=== PATIENT | female | born 1955 | race Caucasian/White ===

== ENCOUNTER 2018-07-14 12:06 | Observation (INO) | payer MEDICARE ==
[~2018-07-14] VITALS: Ht 154.9 cm; Wt 103.0 kg
[~2018-07-14 12:06] MED LIST: AMLODIPINE BESY10 MG PO; AMOXICILLIN/PO500 MG PO; ASPIRIN EC81 MG PO; BYSTOLIC5 MG PO; ENALAPRIL10 MG PO; FUROSEMIDE40 MG PO; GLIPIZIDE ER5 MG PO; JANUVIA100 MG PO; KLOR-CON 1010 ME1 PO; LEVEMIR1000 UNITS; LOFIBRA134 MG PO; LOPRESSOR50 M1 PO; LOSARTAN POT100 MG PO; LYRICA50 MG PO; LYRICA75 MG PO; MEDDOSEPAK PO; NAPROSYN500 MG PO; PANTOPRAZOLE SO40 MG PO; PAROXETINE20 MG PO; PRAVASTATIN SOD20 MG PO; PRAVASTATIN SOD40 MG PO; SONATA10 M1 PO
--- NOTE | 2018-07-14 12:19 | NUR ---
PATIENT TO ROOM VIA WHEELCHAIR AND PHYSICIAN NOTIFIED OF PATIENT STATUS
[2018-07-14 12:49] LABS: HEMATOCRIT 46.2 % (37.0-47.0); IMMATURE GRANULOCYTES 0.2 % (0.0-5.0); MEAN CELL VOLUME 87.3 fL CALC (80.0-100.0); MEAN CORPUSCULAR HGB 30.2 pG CALC (26.0-32.0); MEAN CORPUSCULAR HGB CONC 34.6 g/L CALC (32.0-36.0); NEUT# 1.54 thou/uL (2.00-7.15); RED BLOOD COUNT 5.29 mill/uL (4.20-5.60); RED CELL DISTRI WIDTH 12.8 % (11.5-15.5)
[2018-07-14 13:01] LABS: ANION GAP 16 (6-22 (CALC)); BUN 13 mg/dL (8-23); BUN/CREATININE RATIO 22 (12-20 (CALC)); CARBON DIOXIDE 24 mmol/l (22-30); CHLORIDE 105 mmol/l (95-108); CREATININE 0.6 mg/dL (0.5-1.0); GFR > 60 ML/MIN (>=60 (CALC)); GFR FOR AFR.AMER. > 60 ML/MIN (>=60 (CALC)); POTASSIUM 3.7 mmol/l (3.5-5.1); SODIUM 142 mmol/l (137-146)
--- NOTE | 2018-07-14 13:11 | NUR ---
PT RESTING IN NO ACUTE DISTRESS, VSS. IVF BOLUS & ABT INFUSING. TOLERATING NEBULIZER TX WELL.
--- NOTE | 2018-07-14 13:35 | NUR ---
PT MORE ALERT AND CONVERSIVE. CONTINUOUS IVF BOLUS. RESP EVENA ND UNLABORED
[2018-07-14] MEDS ORDERED: NOVOLIN N100 UNIT/1 SC ×2 (14:23→14:24)
[2018-07-14] MEDS ORDERED: ESCITALOPRAM OX10 MG PO (14:27)
[2018-07-14] MEDS ORDERED: TRAZODONE50 MG PO (14:28)
[2018-07-14] MEDS ORDERED: FLONASE SE27.5 MCG/S IN (14:30)
--- NOTE | 2018-07-14 14:40 | NUR ---
PT RESTING SUPINE, VSS. PT MORE ALERT AND TALKATIVE WITH FAMILY.
--- NOTE | 2018-07-14 15:00 | NUR ---
INITATED IV VANCO ORDERED.
--- NOTE | 2018-07-14 15:10 | NUR ---
PT RESTING IN NO ACUTE DISTRESS. VSS.CONTINUES WITH IV ABT INFUSING WELL. NO STATED C/O. NO PAIN OR RESP DISTRESS. NSR 86.
--- NOTE | 2018-07-14 16:20 | NUR ---
PT TRANSPORTED TO [facility] VIA STRETCHER ON TELEMETRY IN STABLE CONDITION, SISTER IN ATTENDANCE. SISTER YVETTE STATES SHE IS TAKING PTS PURSE HOME, PT AGREEABLE.
--- NOTE | 2018-07-14 16:35 | NUR ---
PT ARRIVED TO [facility] VIA STRETCHER ACCOMPANIED BY ER NURSE. PT ALERT AND ORIENTED X3, AMBULATED TO BATHROOM. NO SIGNS OF DISTRESS NOTED, RESP EVEN AND UNLABORED. ORIENTED TO ROOM AND CALL LIGHT. DISCUSSED POC. PT IN AGREEMENT. PT TEARFUL WHEN DISCUSSING SITUATION AT HOME. PT LIVES WITH BUT STATES HE IS GONE MOST OF THE DAY AND DOES NOT HAVE ANY HELP AT HOME. SHE SOMETIMES FORGETS WHEN AND IF SHE HAS TAKEN ANY MEDICATIONS. PT STATED THAT IT WAS HER SISTER WHO BROUGHT HER TO THE ER, AND SHE WAS IN BED HAVING EPISODES THAT THE BED WAS SATURATED IN SWEAT. PLACED LEAD JAVA SOFTWARE ENGINEER CONSULT. DISCUSSED ANTIBIOTICS, ADMISSION ASSESSMENT COMPLETED. CALL LIGHT IN REACH,CONTINUE TO MONITOR.
[2018-07-14 16:50] VITALS: BP 146/70
--- NOTE | 2018-07-14 18:50 | NUR ---
IV ROCEPHIN COMPLETED, IV SL. PT VOICES NO NEEDS OR COMPLAINTS AT THIS TIME. CALL LIGHT IN REACH,CONTINUE TO MONITOR.
[2018-07-14 19:30] VITALS: BP 142/78
--- NOTE | 2018-07-14 19:30 | NUR ---
PATIENT RESTING IN BED AT THIS TIME-AWAKE ALERT AND ORIENTEDX3. PATIENT IS [place]. NO COMPLAINTS AT THIS TIME. TELE MONITOR IN PLACE. IV SITE TO RIGHT AC INTACT AND APPEARS HELATHY AT THIS TIME. SAFETY PRECAUTIONS REINFORCED. CALL LIGHT IN REACH. WILL CONT TO MONITOR.
[2018-07-14 23:30] VITALS: BP 143/69
--- NOTE | 2018-07-15 01:15 | NUR ---
PATIENT RESTING IN BED-APPEARS SLEEPING WITH EYES CLOSED. RESP ARE EVEN AND UNLABORED. TELE MONITOR IN PLACE. CALL LIGHT IN REACH. WILL CONT TO MONITOR.
--- NOTE | 2018-07-15 03:40 | NUR ---
PATIENT APPEARS SLEEPING AT THIS TIME WITH EYES CLOSED. RESP ARE EVEN AND UNLABORED. TELE MONITOR IN PLACE. CALL LIGHT IN REACH.WILL CONT TO MONITOR.
[2018-07-15 05:28] VITALS: BP 141/70
[2018-07-15 07:22] VITALS: BP 145/68
--- NOTE | 2018-07-15 07:28 | NUR ---
PT. SITTING UP IN BED WITH NO DISTRESS NOTED; DENIES NEEDS/PAIN. PT. REPORTS SHE FEELS MUCH BETTER BETTER AND IS HOPING TO GO HOME TODAY. VSS; PO FLUIDS OFFERED; ASSESSMENT COMPLETED; SEE INTERVENTION;PT. REPORTS BM THIS AM; ENCOURAGED TO CALL FOR ANY NEEDS; CALL LIGHT IS IN REACH; WILL CONTINUE TO MONITOR.
--- NOTE | 2018-07-15 09:01 | NUR ---
PT. SITTING UP IN CHAIR AND IS VERY ANXIOUS WHEN UPDATED WITH POC WITH BLOOD THINNER FOR AFIB; PT. REPORTS SHE IS NOT GOING TO TAKE A BLOOD THINNER THAT SHE IS ALREADY ON ASA AND THAT IS ALL SHE WILL TAKE. PT. ALSO REPORTS THAT SHE IS FEELING BETTER AND WANTS TO GO HOME WHETHER MD SENDS HER HOME OR NOT. WILL NOTIFY SARA HOROWITZ, SHE IS ON THE FLOOR CURRENTLY.
--- NOTE | 2018-07-15 09:15 | NUR ---
SARA HOROWITZ IN TO SEE PT.
--- NOTE | 2018-07-15 10:01 | NUR ---
PT. MEDICATED WITH ORDERED XANAX X1 TO ASSIST TO RELAX; PT. DENIES FURTHER NEEDS;
--- NOTE | 2018-07-15 11:07 | NUR ---
NOTIFIED SARA HOROWITZ, OF ELEVATED BS AT 434; NEW ORDERS TO BE PLACED AND CARRIED OUT WHEN MEDICATION ON EMAR.
[2018-07-15 11:10] VITALS: BP 131/63
[2018-07-15 13:32] LABS: IMMATURE GRANULOCYTES 0.5 % (0.0-5.0); MEAN CELL VOLUME 87.9 fL CALC (80.0-100.0); MEAN CORPUSCULAR HGB 30.6 pG CALC (26.0-32.0); MEAN CORPUSCULAR HGB CONC 34.8 g/L CALC (32.0-36.0); NEUT# 6.87 thou/uL (2.00-7.15); RED BLOOD COUNT 4.48 mill/uL (4.20-5.60); RED CELL DISTRI WIDTH 12.8 % (11.5-15.5)
[2018-07-15 13:36] LABS: HEMATOCRIT 39.4 % (37.0-47.0); HEMOGLOBIN 13.7 g/dl (12.0-16.0)
[2018-07-15 14:00] LABS: ANION GAP 15 (6-22 (CALC)); BUN 15 mg/dL (8-23); BUN/CREATININE RATIO 29 (12-20 (CALC)); CARBON DIOXIDE 23 mmol/l (22-30); CHLORIDE 106 mmol/l (95-108); CREATININE 0.5 mg/dL (0.5-1.0); GFR > 60 ML/MIN (>=60 (CALC)); GFR FOR AFR.AMER. > 60 ML/MIN (>=60 (CALC)); MAGNESIUM 1.7 mg/dL (1.6-2.3); POTASSIUM 3.9 mmol/l (3.5-5.1); SODIUM 140 mmol/l (137-146)
--- NOTE | 2018-07-15 14:18 | NUR ---
ORDERED STEROID AND ABT GIVEN; NO DISTRESS NOTED; UPDATED ON POC. CALL LIGHT IS IN REACH.
--- NOTE | 2018-07-15 14:28 | NUR ---
DR. HILL'S OFFFICE WAS CALLED, AND LEFT MESSAGE IN ANSWERING MACHINE. CONSULT INFORMATION WAS GIVEN.
--- NOTE | 2018-07-15 14:55 | NUR ---
DR. CELAYA IN WITH PT. PT. NOW C/O ABD PAIN; NEW ORDERS RECEIVED AND TO BE CARRIED OUT.
[2018-07-15 15:20] VITALS: BP 132/57
[2018-07-15 17:09] LABS: URINE BILIRUBIN - DIPSTICK NEGATIVE (NEGATIVE); URINE BLOOD DIPSTICK TRACE-INTACT (NEGATIVE); URINE COLOR YELLOW; URINE GLUCOSE - DIPSTICK >=1000 mg/dL (NEGATIVE); URINE KETONE TRACE mg/dL (NEGATIVE); URINE LEUK ESTERASE NEGATIVE (NEGATIVE); URINE NITRITE - DIPSTICK NEGATIVE (Negative); URINE PROTEIN - DIPSTICK NEGATIVE (NEG-TRACE); URINE UROBILINOGEN - DIPSTICK 0.2 E.U./dL (0.2)
--- NOTE | 2018-07-15 17:16 | NUR ---
CALLED RADIOLOGY AND UPDATED THEM OF LAST ORAL CONTRAST BEING GIVEN AT 1630 AND NOTIFIED THEM TO CALL WHEN READY FOR PT. TO GO DOWN FOR CT.
--- NOTE | 2018-07-15 17:30 | NUR ---
CLARIFIED WITH DR. CELAYA HE IN FACT WANTED 25MG OF DEMEROL Q2H PRN ORDERED.
--- NOTE | 2018-07-15 17:33 | NUR ---
PT. C/O ABD PAIN 01/15; MEDICATED WITH ORDERED DEMEROL; WILL REASSESS; ENCOURAGED TO CALL FOR ANY NEEDS; CALL LIGHT IS IN REACH.
--- NOTE | 2018-07-15 17:57 | NUR ---
PT. RETURNED FROM CT
[2018-07-15 19:21] VITALS: BP 159/69
--- NOTE | 2018-07-15 19:30 | NUR ---
PATIENT RESTING IN BED AT THIS TIME-DROWSY BUT AROUSABLE. STILL COMPLAINING OF ONGOING ABD PAIN. TELE MONITOR IN PLACE. IV SITE TO RIGHT AC INTACT AND APPEARS HEALTHY AT THIS TIME. CALL LIGHT IN REACH. WILL CONT TO MONITOR, SAFETY PRECAUTIONS REINFORCED.
--- NOTE | 2018-07-16 | NUR ---
PATIENT APPEARS SLEEPING WITH EYES CLOSED. TELE MONITOR IN PLACE. SALINE LOCK TO RIGHT AC INTACT. TROP TO BE DRAWN. CALL LIGHT IN REACH. WILL CONT TO MONITOR,
[2018-07-16 00:12] VITALS: BP 135/73
--- NOTE | 2018-07-16 04:00 | NUR ---
PATIENT APPEARS SLEEPING AT THIS TIME WITH EYES CLOSED. RESP ARE EVEN AND UNLABORED. CALL LIGHT IN REACH. WILL CONT TO MONITOR.
[2018-07-16 04:45] VITALS: BP 139/75
[2018-07-16 06:10] LABS: HEMATOCRIT 38.8 % (37.0-47.0); HEMOGLOBIN 13.2 g/dl (12.0-16.0); IMMATURE GRANULOCYTES 0.6 % (0.0-5.0); MEAN CELL VOLUME 89.6 fL CALC (80.0-100.0); MEAN CORPUSCULAR HGB 30.5 pG CALC (26.0-32.0); NEUT# 8.13 thou/uL (2.00-7.15); RED BLOOD COUNT 4.33 mill/uL (4.20-5.60); RED CELL DISTRI WIDTH 12.8 % (11.5-15.5)
[2018-07-16 06:25] LABS: ALBUMIN 3.4 g/dL (3.2-5.0); AMYLASE 32 u/l (30-110); ANION GAP 12 (6-22 (CALC)); BILIRUBIN, TOTAL 0.4 mg/dL (0.0-1.4); BUN 18 mg/dL (8-23); BUN/CREATININE RATIO 43 (12-20 (CALC)); CARBON DIOXIDE 25 mmol/l (22-30); CHLORIDE 106 mmol/l (95-108); CREATININE 0.4 mg/dL (0.5-1.0); GFR > 60 ML/MIN (>=60 (CALC)); GFR FOR AFR.AMER. > 60 ML/MIN (>=60 (CALC)); LIPASE 67 u/l (23-300); MAGNESIUM 1.9 mg/dL (1.6-2.3); POTASSIUM 4.4 mmol/l (3.5-5.1); SGOT/AST 31 u/l (9-36); SODIUM 139 mmol/l (137-146)
[2018-07-16 06:31] LABS: ALKALINE PHOSPHATASE 60 u/l (38-126)
--- NOTE | 2018-07-16 07:43 | NUR ---
ASSESSMENT COMPLETED;PT. REPORTS X2 LOOSE BM'S THIS AM; INSTRUCTED TO CALL THIS LASER PRINT OPERATOR THE NEXT TIME THAT SHE GOES; VERBLAIZES UNDERSTANDING. NO DISTRESS NOTED; DENIES NEEDS/PAIN. ENCOURAGED TO CALL FOR ANY NEEDS; CALL LIGHT IS IN REACH; WILL CONTINUE TO MONITOR.
[2018-07-16 07:46] VITALS: BP 138/59
[2018-07-16 11:10] VITALS: BP 140/69
--- NOTE | 2018-07-16 11:17 | NUR ---
PT. SITTING UP IN BED WITH NO DISTRESS NOTED; DENIES NEEDS/PAIN; SCHED INSULIN GIVEN; ENCOURAGED TO CALL FOR ANY NEEDS; CALL LIGHT IS IN REACH.
--- NOTE | 2018-07-16 13:20 | NUR ---
DR. CELAYA IN WITH PT..
--- NOTE | 2018-07-16 13:41 | NUR ---
PT. IN WITH PT. ASSISTING OOB TO RECLINER.
[2018-07-16 15:35] VITALS: BP 144/62
--- NOTE | 2018-07-16 15:47 | NUR ---
PT. DENIES NEEDS; WAITING ON MD TO PLACE DISCHARGE ORDERS. DENIES NEEDS/PAIN.
[2018-07-16] MEDS ORDERED: ELIQUIS2.5 MG PO (16:26)
--- NOTE | 2018-07-16 17:13 | NUR ---
D/C INSTRUCTIONS GIVEN; VERBALIZES UNDERSTANDING; ANSWERED ALL QUESTIONS; IV SITE REMOVED; CATHETER TIP IS INTACT; PT. LEFT STABLE WITH .
== END 2018-07-16 17:15 | disposition home or self-care (01) ==
LOC: ED 12:06 → ED-I 13:29 → ED 13:45 → MS2 13:46
PROVIDERS: Family Medicine; Internal Medicine Nephrology; Nurse Practitioner Family; ADMIT Internal Medicine; ATTEND Internal Medicine
DX: I48.91 Unspecified atrial fibrillation (principal); I11.0 Hypertensive heart disease with heart failure; I50.9 Heart failure, unspecified; E11.9 Type 2 diabetes mellitus without complications; F32.9 Major depressive disorder, single episode, unspecified; K21.9 Gastro-esophageal reflux disease without esophagitis; E78.5 Hyperlipidemia, unspecified; E66.9 Obesity, unspecified; Z68.41 Body mass index [BMI] 40.0-44.9, adult; F41.8 Other specified anxiety disorders; K57.90 Diverticulosis of intestine, part unspecified, without perforation or abscess without bleeding; R06.02 Shortness of breath
CPT/HCPCS: Q9967; S0164

== ENCOUNTER 2018-10-16 08:23 | Day surgery (SDC) | payer MEDICARE ==
[~2018-10-16] VITALS: Ht 157.5 cm; Wt 105.2 kg
[~2018-10-16 08:23] MED LIST changes: +ALENDRONATE SOD70 MG PO; +ALLERGY RE50 MCG/ACT; +CALCIUM 600+D3 PO; +ELIQUIS2.5 MG PO; +ESCITALOPRAM OX10 MG PO; +FLONASE SE27.5 MCG/S IN; +GREEN TEA PO; +LASIX 40 MG40 MG/TAB PO; +LUTEIN20 MG PO; +NOVOLIN N100 UNIT/1 SC; +OMEPRAZOLE20 M1 PO; +POTASSIUM CHLO10 MEQ PO; +SG ASA LOW81 M1 PO; +SUPER B-COMPLEX PO; +TRAZODONE50 MG PO; +VITAMIN E600 UNIT PO; +WARFARIN5 MG PO; +WARFARIN7.5 MG PO; +[UNRECOGNIZED DRUG - OTHER] PO; +[UNRECOGNIZED DRUG - OTHER] PO
[2018-10-16 10:00] VITALS: BP 173/81
== END 2018-10-16 10:15 | disposition home or self-care (01) ==
LOC: ENDO 08:23 → ORM 14:00
PROVIDERS: ATTEND Surgery
PROC: 0DB78ZX Excision of Stomach, Pylorus, Via Natural or Artificial Opening Endoscopic, Diagnostic (ICD-10-PCS; principal; 2018-10-16)
DX: K29.70 Gastritis, unspecified, without bleeding (principal); I10 Essential (primary) hypertension; I48.91 Unspecified atrial fibrillation; E11.9 Type 2 diabetes mellitus without complications; G60.9 Hereditary and idiopathic neuropathy, unspecified

== ENCOUNTER 2020-03-15 08:34 | Emergency (ER) | payer MEDICARE ==
[~2020-03-15] VITALS: Ht 157.5 cm; Wt 105.0 kg
[2020-03-15 09:35] LABS: URINE BILIRUBIN - DIPSTICK NEGATIVE (NEGATIVE); URINE BLOOD DIPSTICK SMALL (NEGATIVE); URINE GLUCOSE - DIPSTICK NEGATIVE (NEGATIVE); URINE KETONE NEGATIVE (NEGATIVE); URINE LEUK ESTERASE NEGATIVE (NEGATIVE); URINE NITRITE - DIPSTICK NEGATIVE (Negative); URINE PH 5.5 (4.5-8.0); URINE PROTEIN - DIPSTICK NEGATIVE (NEG-TRACE); URINE SPECIFIC GRAVITY 1.025; URINE UROBILINOGEN - DIPSTICK 0.2 E.U./dL (0.2)
[2020-03-15 09:36] LABS: URINE COLOR DK. YELLOW; URINE EPITHELIAL CELLS FEW EPI/hpf (0-FEW); URINE RBC 0-2 RBC/hpf (0-5)
[2020-03-15 09:45] LABS: HEMOGLOBIN 12.8 g/dl (12.0-16.0); IMMATURE GRANULOCYTES 0.7 % (0.0-5.0); MEAN CELL VOLUME 91.3 fL CALC (80.0-100.0); MEAN CORPUSCULAR HGB 28.5 pG CALC (26.0-32.0); MEAN CORPUSCULAR HGB CONC 31.2 g/dL CAL (32.0-36.0); NEUT# 8.21 thou/uL (2.00-7.15); RED BLOOD COUNT 4.49 mill/uL (4.20-5.60); RED CELL DISTRI WIDTH 13.1 % (11.5-15.5)
[2020-03-15 10:02] LABS: ALBUMIN 3.8 g/dL (3.2-5.0); ALKALINE PHOSPHATASE 319 u/l (38-126); ANION GAP 12 (6-22 (CALC)); BILIRUBIN, TOTAL 0.8 mg/dL (0.0-1.4); BUN 11 mg/dL (8-23); BUN/CREATININE RATIO 22 (12-20 (CALC)); CARBON DIOXIDE 29 mmol/l (22-30); CHLORIDE 101 mmol/l (95-108); CREATININE 0.5 mg/dL (0.5-1.0); GFR > 60 ML/MIN (>=60 (CALC)); GFR FOR AFR.AMER. > 60 ML/MIN (>=60 (CALC)); LIPASE 53 u/l (23-300); POTASSIUM 4.5 mmol/l (3.5-5.1); SGOT/AST 83 u/l (9-36); SODIUM 137 mmol/l (137-146)
[2020-03-15] MEDS ORDERED: CIPROFLOXACN500 MG PO (11:16)
[2020-03-15] MEDS ORDERED: ONDANSETRON4 MG PO (11:16)
[2020-03-15] MEDS ORDERED: HYDROCO/APAP1 TA9 PO (11:16)
[2020-03-15] MEDS ORDERED: METRONIDAZOL500 MG PO (11:16)
[2020-03-15 11:18] VITALS: BP 178/81
== END 2020-03-15 11:32 | disposition left against medical advice (07) ==
LOC: ED 08:34
PROVIDERS: Family Medicine
DX: K57.20 Diverticulitis of large intestine with perforation and abscess without bleeding (principal); I11.0 Hypertensive heart disease with heart failure; I50.9 Heart failure, unspecified; E11.9 Type 2 diabetes mellitus without complications; K21.9 Gastro-esophageal reflux disease without esophagitis; Z79.4 Long term (current) use of insulin; Z91.19 Patient's noncompliance with other medical treatment and regimen
CPT/HCPCS: Q9967

== ENCOUNTER 2020-03-16 07:49 | Emergency (ER) | payer MEDICARE ==
[~2020-03-16] VITALS: Ht 157.5 cm; Wt 104.0 kg
[~2020-03-16 07:49] MED LIST changes: +CIPROFLOXACN500 MG PO; +HYDROCO/APAP1 TA9 PO; +METRONIDAZOL500 MG PO; +ONDANSETRON4 MG PO
[2020-03-16 08:32] LABS: HEMATOCRIT 42.7 % (37.0-47.0); HEMOGLOBIN 13.1 g/dl (12.0-16.0); IMMATURE GRANULOCYTES 0.6 % (0.0-5.0); MEAN CELL VOLUME 94.5 fL CALC (80.0-100.0); MEAN CORPUSCULAR HGB CONC 30.7 g/dL CAL (32.0-36.0); NEUT# 8.47 thou/uL (2.00-7.15); RED BLOOD COUNT 4.52 mill/uL (4.20-5.60); RED CELL DISTRI WIDTH 13.2 % (11.5-15.5)
[2020-03-16 09:09] LABS: ALBUMIN 3.9 g/dL (3.2-5.0); ALKALINE PHOSPHATASE 285 u/l (38-126); ANION GAP 13 (6-22 (CALC)); BILIRUBIN, TOTAL 0.7 mg/dL (0.0-1.4); BUN 10 mg/dL (8-23); BUN/CREATININE RATIO 17 (12-20 (CALC)); CARBON DIOXIDE 27 mmol/l (22-30); CHLORIDE 101 mmol/l (95-108); CREATININE 0.6 mg/dL (0.5-1.0); GFR > 60 ML/MIN (>=60 (CALC)); GFR FOR AFR.AMER. > 60 ML/MIN (>=60 (CALC)); LIPASE 30 u/l (23-300); SGOT/AST 58 u/l (9-36); SODIUM 137 mmol/l (137-146); TOTAL PROTEIN 7.6 g/dL (6.3-8.2)
[2020-03-16 09:11] LABS: POTASSIUM 3.5 mmol/l (3.5-5.1)
[2020-03-16 09:18] LABS: PROTHROMBIN TIME 28.8 SECONDS (9.0-12.5)
[2020-03-16 12:00] VITALS: BP 148/69
== END 2020-03-16 12:12 ==
LOC: ED 07:49
PROVIDERS: Family Medicine
DX: K57.20 Diverticulitis of large intestine with perforation and abscess without bleeding (principal); E11.9 Type 2 diabetes mellitus without complications; I11.0 Hypertensive heart disease with heart failure; I50.9 Heart failure, unspecified; K21.9 Gastro-esophageal reflux disease without esophagitis; J44.9 Chronic obstructive pulmonary disease, unspecified; Z79.4 Long term (current) use of insulin

== ENCOUNTER 2020-09-02 09:54 | Day surgery (SDC) | payer MEDICARE ==
[~2020-09-02] VITALS: Ht 157.5 cm; Wt 108.9 kg
[~2020-09-02 09:54] MED LIST changes: +ADVAIR DISK1 IN; +MEDICAL MARIJUANA PO
[2020-09-02 15:04] VITALS: BP 126/60
== END 2020-09-02 14:45 | disposition home or self-care (01) ==
LOC: ORM 09:54
PROVIDERS: ATTEND Surgery
PROC: 0HBU0ZX Excision of Left Breast, Open Approach, Diagnostic (ICD-10-PCS; principal; 2020-09-02)
DX: D24.2 Benign neoplasm of left breast (principal); N60.32 Fibrosclerosis of left breast; I10 Essential (primary) hypertension; J44.9 Chronic obstructive pulmonary disease, unspecified; Z79.01 Long term (current) use of anticoagulants; Z80.3 Family history of malignant neoplasm of breast; Z20.822 Contact with and (suspected) exposure to COVID-19
CPT/HCPCS: J1100

== ENCOUNTER 2023-08-07 16:54 | Emergency (ER) | payer MEDICARE ==
[~2023-08-07] VITALS: Ht 157.5 cm; Wt 122.4 kg
[2023-08-07] VITALS (8 sets, daily range): BP systolic 123–177; BP diastolic 63–86
[2023-08-07] MEDS ORDERED: HYDROCO/APAP1 TA9 PO (18:49)
== END 2023-08-07 19:10 | disposition home or self-care (01) ==
LOC: ED 16:54
DX: M54.6 Pain in thoracic spine (principal); M54.50 Low back pain, unspecified; I10 Essential (primary) hypertension; J44.9 Chronic obstructive pulmonary disease, unspecified

== ENCOUNTER 2023-08-24 01:34 | Emergency (ER) | payer MEDICARE ==
[~2023-08-24] VITALS: Ht 157.5 cm; Wt 100.0 kg
[2023-08-24] VITALS (9 sets, daily range): BP systolic 152–192; BP diastolic 57–91
[2023-08-24] MEDS ORDERED: HYDROmorphone HCL 2 MG/AMP IV STA (01:53)
[2023-08-24] MEDS ORDERED: Pantoprazole Sodium 40 MG VIAL (Protonix) IV STA (01:53)
[2023-08-24] MEDS ORDERED: SODIUM CHLORIDE 0.9% 1,000 ML IV STA (01:53)
[2023-08-24] MEDS ORDERED: PROCHLORPERAZINE EDISYLATE 10 MG/2 ML SDV IV ONE (01:55)
[2023-08-24] MEDS ORDERED: DIATRIZOATE MEGLUMINE & SODIUM 30 ML/BTL BTL PO ONE (01:55)
[2023-08-24 02:25] LABS: BASO% 0.2 % (0-3); EOS% 0.4 % (0-8); HEMATOCRIT 41.8 % (37.0-47.0); HEMOGLOBIN 14.1 g/dl (12.0-16.0); IMMATURE GRANULOCYTES 0.3 % (0.0-5.0); LYMPH% 7.7 % (15-41); MEAN CELL VOLUME 92.3 fL CALC (80.0-100.0); MEAN CORPUSCULAR HGB 31.1 pG CALC (26.0-32.0); MEAN CORPUSCULAR HGB CONC 33.7 g/dL CAL (32.0-36.0); MONO% 4.1 % (2-13); NEUT# 10.26 thou/uL (2.00-7.15); NEUT% 87.3 % (42-76); RED BLOOD COUNT 4.53 mill/uL (4.20-5.60); RED CELL DISTRI WIDTH 13.6 % (11.5-15.5)
[2023-08-24] MEDS ORDERED: CORDARONE/200 MG/TAB PO (02:44)
[2023-08-24 03:09] LABS: ALBUMIN 4.4 g/dL (3.2-5.0); ALKALINE PHOSPHATASE 118 u/l (38-126); ANION GAP 10 (6-22 (CALC)); BILIRUBIN, TOTAL 0.8 mg/dL (0.02-1.3); BUN 17 mg/dL (8-23); BUN/CREATININE RATIO 20 (12-20 (CALC)); CARBON DIOXIDE 26 mmol/l (22-30); CHLORIDE 104 mmol/l (95-108); CREATININE 0.9 mg/dL (0.5-1.0); GFR FOR AFR.AMER. > 60 ML/MIN (>=60 (CALC)); GFR OTHER RACES > 60 ML/MIN (>=60 (CALC)); LIPASE 71 u/l (23-300); POTASSIUM 3.4 mmol/l (3.5-5.1); SGOT/AST 39 u/l (9-36); SODIUM 137 mmol/l (137-146); TOTAL PROTEIN 7.3 g/dL (6.3-8.2)
[2023-08-24 04:37] LABS: URINE BILIRUBIN - DIPSTICK Negative (NEGATIVE); URINE BLOOD DIPSTICK Small (NEGATIVE); URINE COLOR Yellow; URINE GLUCOSE - DIPSTICK 100 mg/dL (NEGATIVE); URINE KETONE Trace mg/dL (NEGATIVE); URINE LEUK ESTERASE Negative (NEGATIVE); URINE NITRITE - DIPSTICK Positive (Negative); URINE PROTEIN - DIPSTICK Negative (NEG-TRACE); URINE SPECIFIC GRAVITY 1.015; URINE UROBILINOGEN - DIPSTICK 0.2 E.U./dL (0.2)
[2023-08-24 04:45] LABS: URINE BACTERIA MANY hpf; URINE SQUAMOUS EPITHELIAL CELL FEW EPI/hpf (0-FEW); URINE WBC 0-2 WBC/hpf (0-5)
[2023-08-24] MEDS ORDERED: TAMSULOSIN HCL 0.4 MG CAP PO STA (06:08)
[2023-08-24] MEDS ORDERED: TRAMADOL HCL50 MG PO (06:10)
[2023-08-24] MEDS ORDERED: TAMSULOSIN0.4 MG PO ×2 (06:10→06:11)
[2023-08-24] MEDS ORDERED: HYDROcodone 5 MG/Acetaminophen 325 MG/COMBO PO ONE (06:10)
== END 2023-08-24 06:30 | disposition home or self-care (01) ==
LOC: ED 01:34
PROVIDERS: Family Medicine
DX: N13.2 Hydronephrosis with renal and ureteral calculous obstruction (principal); I10 Essential (primary) hypertension; E11.9 Type 2 diabetes mellitus without complications; J44.9 Chronic obstructive pulmonary disease, unspecified; E66.9 Obesity, unspecified; Z79.4 Long term (current) use of insulin; Z20.822 Contact with and (suspected) exposure to COVID-19
CPT/HCPCS: Q9967; S0164

== ENCOUNTER 2023-08-28 18:02 | Emergency (ER) | payer MEDICARE ==
[2023-08-28] VITALS (7 sets, daily range): BP systolic 148–165; BP diastolic 64–88
[~2023-08-28] VITALS: Ht 157.5 cm; Wt 127.0 kg
[~2023-08-28 18:02] MED LIST changes: +CORDARONE/200 MG/TAB PO; +TAMSULOSIN0.4 MG PO; +TRAMADOL HCL50 MG PO
[2023-08-28] MEDS ORDERED: methylPREDNISolone SODIUM SUCC 125 MG/2 ML SDV IM ONE (19:00)
[2023-08-28] MEDS ORDERED: ORPHENADRINE CITRATE 30 MG/ML AMP IM ONE (19:00)
[2023-08-28] MEDS ORDERED: ORPHENADRINE C100 MG PO (19:59)
== END 2023-08-28 21:13 | disposition home or self-care (01) ==
LOC: ED 18:02
DX: M54.9 Dorsalgia, unspecified (principal); M25.511 Pain in right shoulder; I10 Essential (primary) hypertension; E11.9 Type 2 diabetes mellitus without complications; J44.9 Chronic obstructive pulmonary disease, unspecified; E78.5 Hyperlipidemia, unspecified; Z79.84 Long term (current) use of oral hypoglycemic drugs